=== PATIENT | female | born 1950 | race Caucasian/White ===

== ENCOUNTER 2021-08-05 09:00 | Emergency (ER) | payer MEDICARE, OTHER, SELFPAY ==
--- NOTE | ~2021-08-05 | CT_ITS ---
EXAMINATION: HEAD CT WITHOUT CONTRAST CERVICAL SPINE CT WITHOUT CONTRAST CLINICAL INFORMATION: Head injury COMPARISON: None. TECHNIQUE: Contiguous axial imaging of the head was performed without the administration of IV contrast. Axial multidetector volumetric images were also performed through the cervical spine without contrast. Multiplanar reconstructed images in coronal and sagittal orientations were submitted. DOSE: 1181 mGy-cm FINDINGS: HEAD: There is no evidence of acute intracranial hemorrhage or territorial infarction. No abnormal mass-effect or midline shift. No extra-axial fluid collections. Longo to white matter differentiation is well preserved. The ventricles are normal in size and configuration. . No acute calvarial fracture. The sinuses and mastoid air cells are clear. CERVICAL SPINE: Vertebral body heights are normal. No acute fractures identified of the vertebral bodies or posterior elements. Vertebral alignment is normal. No subluxation. The craniocervical and atlantoaxial articulations are normal. Cervical spondylosis present. This includes moderate C4-C5, C5-C6, C6-C7 disc degeneration. Mild facet degeneration present.. Central canal and neural foramina appear patent without appreciable stenoses. No significant paravertebral soft tissue swelling. No bulky adenopathy seen.. No suspicious findings in the lung apices. CT/CT head/brain wo con IMPRESSION: 1. No CT evidence of acute intracranial pathology. 2. No CT evidence of acute fracture or malalignment in the cervical spine. 3. Moderate C4-C5, C5-C6, C6-C7 disc degeneration.
--- NOTE | ~2021-08-05 | CT_ITS ---
EXAMINATION: HEAD CT WITHOUT CONTRAST CERVICAL SPINE CT WITHOUT CONTRAST CLINICAL INFORMATION: Head injury COMPARISON: None. TECHNIQUE: Contiguous axial imaging of the head was performed without the administration of IV contrast. Axial multidetector volumetric images were also performed through the cervical spine without contrast. Multiplanar reconstructed images in coronal and sagittal orientations were submitted. DOSE: 1181 mGy-cm FINDINGS: HEAD: There is no evidence of acute intracranial hemorrhage or territorial infarction. No abnormal mass-effect or midline shift. No extra-axial fluid collections. Longo to white matter differentiation is well preserved. The ventricles are normal in size and configuration. . No acute calvarial fracture. The sinuses and mastoid air cells are clear. CERVICAL SPINE: Vertebral body heights are normal. No acute fractures identified of the vertebral bodies or posterior elements. Vertebral alignment is normal. No subluxation. The craniocervical and atlantoaxial articulations are normal. Cervical spondylosis present. This includes moderate C4-C5, C5-C6, C6-C7 disc degeneration. Mild facet degeneration present.. Central canal and neural foramina appear patent without appreciable stenoses. No significant paravertebral soft tissue swelling. No bulky adenopathy seen.. No suspicious findings in the lung apices. CT/CT cervical spine wo con IMPRESSION: 1. No CT evidence of acute intracranial pathology. 2. No CT evidence of acute fracture or malalignment in the cervical spine. 3. Moderate C4-C5, C5-C6, C6-C7 disc degeneration.
[2021-08-05 09:06] VITALS: BP 200/94; PULSE 70; RESP 16; TEMP 36.2; O2SAT 99; BMI 33.0
--- NOTE | 2021-08-05 09:19 | ED_ITS ---
HPI - Fall General Chief Complaint: Fall Stated Complaint: fall/head injury Time Seen by Provider: 08/05/21 09:10 Source: patient and family Mode of arrival: ambulatory Limitations: no limitations History of Present Illness HPI Narrative: 71 yo female with a history of afib on coumadin, GERD, HTN, hypothyroidism here after slip and fall hitting posterior head on the ground this morning at 810am. No LOC. NO headache, dizziness, vision changes, nausea, vomiting or neck pain. Related Data Allergies Allergy/AdvReac Type Severity Reaction Status Date / Time fluoxetine [From PROZAC] Allergy Unknown MONTH LONG Verified 08/05/21 09:06 RASH Penicillins [PENICILLINS] Allergy Unknown UNKNOWN Verified 08/05/21 09:06 Review of Systems Review of Systems: Yes all other systems are reviewed and are negative Constitutional: Constitutional: Reports no additional constitutional complaints, Denies body ache(s), Denies chills, Denies fever(s), Denies headache(s) and Denies weakness Eyes: Eyes: Reports no additional eye complaints and Denies change in vision ENT: Reports system reviewed and no additional complaints, except as document ed, Denies dizziness, Denies headache(s), Denies nasal congestion, Denies nasal discharge and Denies neck pain Cardiovascular: Cardiovascular: Reports no additional cardiovascular complaints, Denies chest pain, Denies leg edema and Denies dyspnea Respiratory: Respiratory: Reports no additional respiratory complaints, Denies cough and Denies dyspnea Gastrointestinal: Gastrointestinal: Reports no additional gastrointestinal complaints, Denies abdominal pain, Denies diarrhea, Denies nausea and Denies vomiting Genitourinary: Genitourinary: Reports no additional female genitourinary complaints and Denies urinary incontinence Musculoskeletal: Musculoskeletal: Reports no additional musculoskeletal complaints, Denies back pain, Denies arthralgias, Denies joint swelling, Denies neck pain, Denies numbness and Denies tingling Integumentary/Breasts: Skin/Breast: Reports system reviewed and no additional complaints, except as docu and Denies rash Neurologic: Reports system reviewed and no additional complaints, except as documented, Denies Abnormal speech present, Denies dizziness, Denies headache(s), Denies numbness, Denies tingling and Denies weakness [facility] Past Medical History Attestation statement: The following information was validated with the patient. Source: old records reviewed and nursing notes reviewed Social History Social History Advance Directives: No Advance Directives Information Provided: No Physical Exam Vital Signs: Vital Signs: Last Vital Signs Temp 97.2 F 08/05/21 09:06 Pulse 70 08/05/21 09:06 Resp 16 08/05/21 09:06 BP 200/94 H 08/05/21 09:06 Pulse Ox 99 08/05/21 09:06 BMI result Body Mass Index 33.0 Const: General: cooperative, healthy appearing, comfortable and no acute distress Orientation/consciousness: patient oriented x3 Limitations: no limitations HENMT: Head: Yes normal to inspection Ears: hearing grossly normal bilaterally and TM's normal bilaterally General nose exam: Normal external nose present Face and sinus: Yes normal facial exam Mouth: Normal oral and palatal mucosa present Throat: Yes posterior oropharynx normal, Yes tonsils normal and Yes uvula midline Eyes: General: appearance normal, both eyes and all related structures Pupils: Equal, round and reactive pupils present Neck: Other: no midline tenderness, step offs or deformities Neck: Yes normal visual inspection, Yes full ROM, Yes no lymphadenopathy and Yes no meningeal signs Chest: Chest palpation & inspection: normal inspection of the chest Resp: Effort & Inspection: normal respiratory effort Auscultation: clear to auscultation bilaterally Cardio: Rate: regular rate Rhythm: regular rhythm Peripheral pulses: Peripheral pulses 2+ throughout GI: Inspection: Yes normal to inspection Palpation (GI): Soft to palpation and nontender Auscultation: normal bowel sounds Back/Spine/Pelvis: Thoracic/Lumbar Spine: thoracic and lumbar spine normal to inspection Skin: General skin exam: no rashes or lesions noted Neuro: General: patient oriented x3, no meningeal signs, no focal motor deficits and normal sensation to monofilament Cranial nerves: Yes CN's II-XII intact bilaterally, Yes Equal, round and reactive pupils present, Yes Bilaterally intact EOM present, Yes Nystagmus not present, Yes Normal facial strength present and Yes Midline tongue present Cognition (Neuro): normal cognition Speech: No Abnormal speech present Gait exam (Neuro): Normal gait present Motor exam (neuro): 5/5 motor strength present throughout Sensory Exam: Normal double simultaneous stimulation for sensation Coordination: [id number] test normal, [id number] test normal and tandem gait normal Extrem: General: Yes normal to inspection Course Course Course Narrative: 71 yo female here after mechanical fall at 810am with posterior head strike on coumadin here for evaluation. Patient has no symptoms. Normal neuro exam. D/t coumadin use will check CT head/neck, PT INR 1130-CT head/neck unremarkable. INR 2.2. All other labs at baseline. Patient feels well. Normal neurological exam. Asymptomatic HTN but did not take her morning medications. Reviewed head injury care for home. Reviewed worrisome signs and symptoms of when to return to the emergency department. Comfortable discharge home. MDM - Fall Medical Records Attestation: I reviewed the patient's medical records. Lab Data Attestation: I reviewed the patient's lab results. Result diagrams: 08/05/21 09:33 08/05/21 09:33 Labs: Lab Results 08/05/21 08/05/21 08/05/21 Range/Units 09:33 09:33 09:33 WBC 7.5 (4.8-10.8) X10*3/uL RBC 5.21 (4.20-5.50) X10*6/uL Hgb 14.0 (12.0-16.0) g/dl Hct 43.8 (37.0-47.0) % MCV 84.1 (80.0-98.0) fL MCH 26.9 L (27.0-33.0) pg MCHC 32.0 (31.0-35.0) g/dl RDW 15.0 (11.0-16.0) % Plt Count 194 (160-400) X10*3/uL MPV 11.2 (9.4-12.3) fL Immature Gran % (Auto) 0.3 (0.0-0.4) % Neut % (Auto) 57.9 (45-73) % Lymph % (Auto) 32.2 (20-40) % Whiteside % (Auto) 6.2 (2-11) % Eos % (Auto) 3.0 (0-4) % Baso % (Auto) 0.4 (0-2) % Lymph # (Auto) 2.4 (1.2-4.9) X10*3/uL Whiteside # (Auto) 0.5 (0.1-1.2) X10*3/uL Eos # (Auto) 0.2 (0.0-0.4) X10*3/uL Baso # (Auto) 0.0 (0.0-0.2) X10*3/uL Abs Immat Gran (auto) 0.02 (0.00-0.03) X10*3/uL Absolute Neuts (auto) 4.3 (2.0-8.3) x10*3/uL Absolute Nucleated RBC 0.000 (0.0-0.012) X10*3/uL Nucleated RBC % (auto) 0.0 (0.0-0.2) /100WBC PT 24.9 H (9.9-13.0) SEC INR 2.2 H (0.9-1.1) Sodium 141 (135-145) mmol/L Potassium 3.7 (3.3-5.1) mmol/L Chloride 106 (96-108) mmol/L Carbon Dioxide 27 (22-29) mmol/L Anion Gap 12 (12-20) BUN 19 H (9-16) mg/dL Creatinine 0.93 (0.5-1.4) mg/dL Estim Creat Clear Calc 63.7 Estimated GFR 59 Random Glucose 111 (60-115) mg/dL Calcium 8.9 (8.4-10.2) mg/dL Imaging Data ct head/cervical spine: Attestation: I personally reviewed and interpreted this imaging study as follows: Radiologist's impression: HEAD: There is no evidence of acute intracranial hemorrhage or territorial infarction. No abnormal mass-effect or midline shift. No extra-axial fluid collections.? Longo to white matter differentiation is well preserved. The ventricles are normal in size and configuration. ? . No acute calvarial fracture. The sinuses and mastoid air cells are clear. CERVICAL SPINE: Vertebral body heights are normal. No acute fractures identified of the vertebral bodies or posterior elements. Vertebral alignment is normal. No subluxation. The craniocervical and atlantoaxial articulations are normal. Cervical spondylosis present. This includes moderate C4-C5, C5-C6, C6-C7 disc degeneration. Mild facet degeneration present.. Central canal and neural foramina appear patent without appreciable stenoses. No significant paravertebral soft tissue swelling. No bulky adenopathy seen.. No suspicious findings in the lung apices. CT/CT head/brain wo con IMPRESSION: 1. No CT evidence of acute intracranial pathology. 2. No CT evidence of acute fracture or malalignment in the cervical spine. 3. Moderate C4-C5, C5-C6, C6-C7 disc degeneration. Discharge Plan Discharge Clinical Impression: Contusion of head Patient Disposition: Home, Self-Care Instructions: Head Injury (ED), Contusion in Adults (ED) Additional Instructions: INR today is 2.2 CT scan of brain and neck looks normal with no signs of bleeding Return for Headache, vomiting, dizziness, vision changes Referrals: Hank Salmeron MD [Primary Care Provider] - 1 week (as needed) Interventions: ED Discharge Assessment Last Done: 08/05/21 11:08 Discharge Date/Time: 08/05/21 11:09
[2021-08-05 09:38] LABS: MANUAL DIFF FLAG NO
[2021-08-05 09:39] LABS: Basophils Percent Auto 0.4 % (0-2); Eosinophils Absolute Auto 0.2 X10*3/uL (0.0-0.4); Hematocrit 43.8 % (37.0-47.0); Imm Gran Abs Auto 0.02 X10*3/uL (0.00-0.03); Imm Gran Pct Auto 0.3 % (0.0-0.4); Lymphocytes Absolute Auto 2.4 X10*3/uL (1.2-4.9); Lymphocytes Percent Auto 32.2 % (20-40); Mean Corpuscular Hemoglobin 26.9 pg (27.0-33.0); Mean Corpuscular Volume 84.1 fL (80.0-98.0); Mean Platelet Volume 11.2 fL (9.4-12.3); Monocytes Absolute Auto 0.5 X10*3/uL (0.1-1.2); Monocytes Percent Auto 6.2 % (2-11); Neutrophils Absolute Auto 4.3 x10*3/uL (2.0-8.3); Neutrophils Percent Auto 57.9 % (45-73); Platelet Count 194 X10*3/uL (160-400); Red Blood Count 5.21 X10*6/uL (4.20-5.50); White Blood Count 7.5 X10*3/uL (4.8-10.8)
[2021-08-05 09:45] LABS: INTERNATIONAL NORM RATIO 2.2 (0.9-1.1); Prothrombin Time 24.9 SEC (9.9-13.0)
[2021-08-05 09:58] LABS: Anion Gap 12 (12-20); Blood Urea Nitrogen 19 mg/dL (9-16); Calcium 8.9 mg/dL (8.4-10.2); Carbon Dioxide 27 mmol/L (22-29); Chloride 106 mmol/L (96-108); Creatinine Clr Calc Pharmacy 63.7; Estimated Glomerular Filt Rate 59; Glucose Random 111 mg/dL (60-115); Potassium 3.7 mmol/L (3.3-5.1); Sodium 141 mmol/L (135-145)
== END 2021-08-05 11:09 | disposition home or self-care (01) ==
PROVIDERS: Nurse Practitioner Family; Emergency Provider Emergency Medicine; PCP Family Medicine
DX: S00.93XA Contusion of unspecified part of head, initial encounter (principal); G44.309 Post-traumatic headache, unspecified, not intractable; M54.2 Cervicalgia; I48.91 Unspecified atrial fibrillation; W01.0XXA Fall on same level from slipping, tripping and stumbling without subsequent striking against object, initial encounter; Y93.9 Activity, unspecified; Y92.9 Unspecified place or not applicable; Y99.9 Unspecified external cause status; Z79.01 Long term (current) use of anticoagulants
CPT/HCPCS: 36415; 70450; 72125; 80048; 85025; 85610; 99283